=== PATIENT | female | born 1965 | race Caucasian/White ===

== ENCOUNTER 2019-01-12 10:47 | Emergency (ER) | payer SELFPAY ==
--- NOTE | 2019-01-12 11:18 | ER Document Report ---
ED Medical Screen (RME) - General Chief Complaint: Blood Pressure Problem Stated Complaint: BLOOD PRESSURE PROBLEMS Time Seen by Provider: 01/12/19 11:14 Mode of Arrival: Ambulatory Information source: Patient Notes: 53-year-old female presented to ED for elevated blood pressure. Her blood pressure was 245/113 on the left arm. She is alert oriented respirations regular and unlabored. She states she went to the dentist office and they sent her to the emergency room for this extremely high blood pressure. She states she has been having decreased blurry vision that is slowly progressed. She states she knows she had high blood pressure since 2005 and she was on blood pressure medicine but she has not been able to go to a doctor because she has not had insurance since 2015 and has not been on any meds since then. She states she is not able to work due to arthritis, one leg shorter than the other, back to knee, and other medical problems. She states she has not been able to get insurance so she is not able to go to a doctor. I have discussed with patient the risk of not getting blood pressure medicine when she has elevated blood pressure and she states that she does not know these risk. I have greeted and performed a rapid initial assessment of this patient. A comprehensive ED assessment and evaluation of the patient, analysis of test results and completion of medical decision making process will be conducted by an additional ED providers. Dictation of this chart was performed using voice recognition software; therefore, there may be some unintended grammatical errors. TRAVEL OUTSIDE OF THE [place] IN LAST 30 DAYS: No - Related Data Allergies/Adverse Reactions: lisinopril Allergy (Verified 01/12/19 10:48) Physical Exam - Vital signs Vitals: Temp Pulse Resp BP Pulse Ox 98.2 F 89 18 247/101 H 97 01/12/19 10:52 01/12/19 10:52 01/12/19 10:52 01/12/19 10:52 01/12/19 10:52 Course - Vital Signs Vital signs: Temp Pulse Resp BP Pulse Ox 98.2 F 89 18 247/101 H 97 01/12/19 10:52 01/12/19 10:52 01/12/19 10:52 01/12/19 10:52 01/12/19 10:52
[2019-01-12 11:33] LABS: ABSOLUTE BASOPHILS # (AUTO) 0.1 10^3/uL (0.0-0.2); ABSOLUTE EOSINOPHILS # (AUTO) 0.1 10^3/uL (0.0-0.6); ABSOLUTE MONOCYTES (AUTO) 0.6 10^3/uL (0.1-1.4); ABSOLUTE NEUT (AUTO) 7.7 10^3/uL (1.7-8.2); BASOPHILS % (AUTO) 0.7 % (0-2); EOSINOPHILS % (AUTO) 1.1 % (0-6); HEMATOCRIT 44.4 % (36.0-47.0); LYMPHOCYTES % (AUTO) 19.3 % (13-45); MEAN CORPUSCULAR HEMOGLOBIN 28.4 pg (27.0-33.4); MEAN CORPUSCULAR HGB CONC 33.7 g/dL (32.0-36.0); MEAN CORPUSCULAR VOLUME 84 fl (80-97); MONOCYTES % (AUTO) 5.4 % (3-13); PLATELET COUNT 232 10^3/uL (150-450); RED BLOOD COUNT 5.26 10^6/uL (3.72-5.28); RED CELL DISTRIBUTION WIDTH 15.1 % (11.5-14.0); SEGMENTED NEUTROPHILS % (AUTO) 73.5 % (42-78); TOTAL CELLS COUNTED % (AUTO) 100 %; WHITE BLOOD COUNT 10.4 10^3/uL (4.0-10.5)
[2019-01-12 11:41] LABS: APPEARANCE,URINE CLEAR; BILIRUBIN,URINE NEGATIVE (NEGATIVE); COLOR,URINE YELLOW; GLUCOSE, URINE NEGATIVE (NEGATIVE); KETONES,URINE NEGATIVE (NEGATIVE); LEUKOCYTE ESTERASE,URINE SMALL (NEGATIVE); NITRITE,URINE NEGATIVE (NEGATIVE); PROTEIN,URINE 30 mg/dL (NEGATIVE); URINE SPECIFIC GRAVITY 1.013; UROBILINOGEN,URINE NEGATIVE mg/dL (<2.0)
[2019-01-12 11:53] LABS: ALANINE AMINOTRANSFERASE 17 U/L (9-52); ALBUMIN 4.9 g/dL (3.5-5.0); ALKALINE PHOSPHATASE 107 U/L (38-126); ANION GAP 12 (5-19); ASPARTATE AMINO TRANSFERASE 20 U/L (14-36); BILIRUBIN,DIRECT 0.3 mg/dL (0.0-0.4); BILIRUBIN,TOTAL 0.4 mg/dL (0.2-1.3); BLOOD UREA NITROGEN 9 mg/dL (7-20); CALCIUM 10.5 mg/dL (8.4-10.2); CARBON DIOXIDE 28 mmol/L (22-30); CHLORIDE 104 mmol/L (98-107); GLUCOSE 126 mg/dL (75-110); POTASSIUM 3.6 mmol/L (3.6-5.0); TOTAL PROTEIN 8.4 g/dL (6.3-8.2)
--- NOTE | 2019-01-12 12:50 | RADIOLOGY REPORT (SQ) ---
EXAM DESCRIPTION: CHEST 2 VIEWS COMPLETED DATE/TIME: 01/12/2019 12:14 pm REASON FOR STUDY: htn COMPARISON: None. EXAM PARAMETERS: NUMBER OF VIEWS: two views TECHNIQUE: Digital Frontal and Lateral radiographic views of the chest acquired. RADIATION DOSE: NA LIMITATIONS: none FINDINGS: LUNGS AND PLEURA: No opacities, masses or pneumothorax. No pleural effusion. MEDIASTINUM AND HILAR STRUCTURES: No masses or contour abnormalities. HEART AND VASCULAR STRUCTURES: Heart normal size. No evidence for failure. BONES: No acute findings. HARDWARE: None in the chest. OTHER: No other significant finding. IMPRESSION: NO ACUTE RADIOGRAPHIC FINDING IN THE CHEST. TECHNICAL DOCUMENTATION: JOB ID: [id number] [employer]- All Rights Reserved Reading location - IP/workstation name: [email or web address]
[2019-01-12] MEDS ORDERED: CLONIDINE HCL 0.2 MG TABLET PO ONE (13:25)
[2019-01-12] MEDS ORDERED: HYDROCHLOROTHIAZIDE 25 MG TABLET PO ONE (16:52)
[2019-01-12] MEDS ORDERED: AMLODIPINE BESYLATE 10 MG TABLET PO ONE (16:53)
[2019-01-12 18:22] VITALS: BP 195/99
--- NOTE | 2019-01-12 18:22 | ER Document Report ---
ED Blood Pressure Problem - General Chief Complaint: Blood Pressure Problem Stated Complaint: BLOOD PRESSURE PROBLEMS Time Seen by Provider: 01/12/19 11:14 Mode of Arrival: Ambulatory Information source: Patient TRAVEL OUTSIDE OF THE [place] IN LAST 30 DAYS: No - HPI Patient complains to provider of: High blood pressure Onset: Other Quality of pain: No pain Severity: None Pain Level: Denies Problem is: Chronic problem Pt currently taking medication for problem: No Associated symptoms: None Similar symptoms previously: Yes Recently seen / treated by doctor: Yes Notes: 53-year-old female known hypertensive patient was at the dentist did have a tooth pulled and her blood pressure was too high so the dentist declined to do the procedure. She came to the ER without complaints. She is requesting presc ription medications for blood pressure. She has no family doctor she has been on multiple medications in the past and cannot afford her medications. She has angioedema and a chronic cough to lisinopril. She has been on an ARB before. She has been on calcium channel blockers and hydrochlorothiazide before. No chest pain no headache no vision changes. No abdominal pain no back pain. No neuro symptoms. - Related Data Allergies/Adverse Reactions: lisinopril Allergy (Verified 01/12/19 10:48) Past Medical History - General Information source: Patient - Social History Smoking Status: Current Every Day Smoker Chew tobacco use (# tins/day): No Frequency of alcohol use: None Drug Abuse: None Family History: Reviewed & Not Pertinent, Hypertension Patient has suicidal ideation: No Patient has homicidal ideation: No - Past Medical History Cardiac Medical History: Reports: Hx Hypertension Renal/ Medical History: Denies: Hx Peritoneal Dialysis Musculoskeletal Medical History: Reports Hx Arthritis - back and hips Past Surgical History: Reports: Hx Orthopedic Surgery - foot/right Review of Systems - Review of Systems EENT: No symptoms reported Cardiovascular: No symptoms reported Respiratory: No symptoms reported Gastrointestinal: No symptoms reported Physical Exam - Vital signs Vitals: Temp Pulse Resp BP Pulse Ox 98.2 F 89 18 247/101 H 97 01/12/19 10:52 01/12/19 10:52 01/12/19 10:52 01/12/19 10:52 01/12/19 10:52 - Notes Notes: PHYSICAL EXAMINATION: GENERAL: Well-appearing, well-nourished and in no acute distress. HEAD: Atraumatic, normocephalic. EYES: Pupils equal round and reactive to light, extraocular movements intact, sclera anicteric, conjunctiva are normal. ENT: nares patent, oropharynx clear without exudates. Moist mucous membranes. NECK: Normal range of motion, supple without lymphadenopathy LUNGS: Breath sounds clear to auscultation bilaterally and equal. No wheezes rales or rhonchi. HEART: Regular rate and rhythm without murmurs ABDOMEN: Soft, nontender, normoactive bowel sounds. No guarding, no rebound. No masses appreciated. EXTREMITIES: Normal range of motion, no pitting or edema. No cyanosis. NEUROLOGICAL: No focal neurological deficits. Moves all extremities spontaneously and on command. PSYCH: Normal mood, normal affect. SKIN: Warm, Dry, normal turgor, no rashes or lesions noted. Course - Re-evaluation Re-evalutation: 01/12/19 18:19 Blood pressures come down with Norvasc and hydrochlorothiazide. Will restart this medications for her. We will give her 1-month supply. Nurses instructing her on where to go for the class clinic. 01/12/19 18:21 Patient's blood pressure is now coming down. Diastolics under 100 I discussed with her she needs to follow-up with the family doctor and have blood pressure checks frequently - Vital Signs Vital signs: Temp Pulse Resp BP Pulse Ox 98.2 F 89 18 226/114 H 98 01/12/19 10:52 01/12/19 10:52 01/12/19 16:01 01/12/19 16:01 01/12/19 16:01 - Laboratory Result Diagrams: 01/12/19 11:21 01/12/19 11:21 Laboratory results interpreted by me: 01/12/19 01/12/19 01/12/19 11:21 11:21 11:21 RDW 15.1 H Glucose 126 H Calcium 10.5 H Total Protein 8.4 H Urine Protein 30 H Ur Leukocyte Esterase SMALL H Discharge - Discharge Clinical Impression: Hypertension Condition: Stable Disposition: HOME, SELF-CARE Prescriptions: Amlodipine Besylate [Norvasc 10 mg Tablet] 10 mg PO DAILY #30 tablet Hydrochlorothiazide [Hydrodiuril 25 mg Tablet] 25 mg PO QAM #30 tablet
== END 2019-01-12 18:30 | disposition home or self-care (01) ==
LOC: ER 10:47
DX: I10 Essential (primary) hypertension (principal); F17.200 Nicotine dependence, unspecified, uncomplicated
CPT/HCPCS: 36415; 71046; 80053; 81001; 85025; 99283